=== PATIENT | female | born 1995 | race Caucasian/White ===

== ENCOUNTER 2019-01-11 10:18 | Day surgery (SDC) | payer OTHER ==
[2019-01-11] MEDS ORDERED: PROPOFOL 20 ML ×2 (11:33→12:17)
== END 2019-01-11 17:49 | disposition home or self-care (01) ==
LOC: GIL 10:18
DX: R19.7 Diarrhea, unspecified (principal); K64.9 Unspecified hemorrhoids; F17.200 Nicotine dependence, unspecified, uncomplicated
CPT/HCPCS: 45380; 84703; 88305